=== PATIENT | female | born 1995 | race Caucasian/White ===

== ENCOUNTER 2018-02-12 10:44 | Emergency (ER) | payer BC, OTHER, SELFPAY ==
[2018-02-12 10:45] VITALS: BP 120/69; PULSE 78; PULSE 79; RESP 18; TEMP 37.3; O2SAT 97; O2SAT 99; BMI 35.9
--- NOTE | 2018-02-12 11:05 | EKG12_ITS ---
Test Reason : CP Blood Pressure : / mmHG Vent. Rate : 071 BPM Atrial Rate : 071 BPM P-R Int : 174 ms QRS Dur : 078 ms QT Int : 374 ms P-R-T Axes : 043 055 043 degrees QTc Int : 406 ms Normal sinus rhythm Normal ECG Confirmed by DANDY DAVIS, MIGUELITO ([id number]), clinical editor JEREMIAS KELLY ([id number]) on 02/15/2018 1:18:45 PM Referred By: VERA/GASTON Confirmed By:MIGUELITO DORMAN MD
--- NOTE | 2018-02-12 11:05 | RAD_ITS ---
STUDY: X-RAY CHEST REASON FOR EXAM: Female, 22 years old. Chest pain TECHNIQUE: Single AP portable view of the chest. COMPARISON: 02/26/2013 FINDINGS: Cardiac monitoring leads overlie the chest. The lungs are clear and expanded. There is no demonstrated pleural abnormality. Normal size heart. Normal mediastinum and anu. Normal visualized pulmonary arteries. Normal visualized aortic arch and descending thoracic aorta. Normal visualized thoracic spine. Normal visualized ribs, clavicles, and shoulders. There is no demonstrated abnormality of the visualized soft tissue structures of the upper abdomen. RAD/Chest 1 View (Portable) IMPRESSION: Normal x-ray examination of the chest. Electronically Signed: Ahsan Minor DO at 11:39 EDT Tel , Service support ,
[2018-02-12] MEDS: 0.9% Normal Saline 1,000 ML 150 ML IV (11:30)
[2018-02-12 11:36] LABS: Absolute Lymphocyte Count 2.46 X10^3/ul (0.83-4.51); Absolute Neutrophil Count 6.7 X10^3/uL (2.0-7.7); Basophil# 0.05 X10^3/uL; Basophil% 0.5 % (0-1); Eosinophil# 0.25 X10^3/uL; Eosinophils% 2.4 % (0-5); Hemoglobin 14.9 g/dl (12.0-15.0); Lymphocyte # 2.46 X10^3/ul (4.0); Lymphocyte % 23.6 % (19-41); Mean Corp Hgb Conc 34.7 g/gl (32-36); Mean Corpuscular Hgb 28.8 pg (27.0-32.0); Mean Platelet Vol. 9.7 fl (6.2-12.0); Monocyte# 0.89 X10^3/uL; Monocyte% 8.5 % (0-10); Neutrophil # 6.73 X10^3/uL (2.7-7.7); Neutrophil % 64.7 % (47-70); POSITIVE COUNT NO; POSITIVE DIFFERENTIAL NO; POSITIVE MORPHOLOGY NO; Platelet Count 253 K/mm3 (150-450); RBC Distribution Width CV 12.9 % (11.6-14.6); Red Blood Count 5.18 M/mm3 (4.2-5.4); White Blood Count 10.4 K/mm3 (4.4-11.0)
[2018-02-12 11:50] LABS: D-Dimer Quantitative (DVT/PE) < 0.27 FEU/ug/m (0.27-0.49)
[2018-02-12 11:53] LABS: Anion Gap 4 (5-15); BUN 9 mg/dL (7-18); BUN/Creat Ratio 11.9 RATIO (10-20); Chloride 106 mmol/L (98-107); Creatinine, Serum 0.76 mg/dL (0.55-1.02); EST Glomerular Filtration Rate 101 mL/min (>60); Est Glom Filt Rate - Afr Amer 123 mL/min (>60); Estimated Creatinine Clearance 100.26 ml/min; Glucose 83 mg/dL (74-106); Potassium 3.9 mmol/L (3.5-5.1); Sodium Level 137 mmol/L (136-145)
[2018-02-12 12:07] LABS: Pregnancy, Serum, hCG Quali. NEGATIVE Negative (0-9 Nonpreg)
--- NOTE | 2018-02-12 13:11 | ED.DCSUM_ITS ---
- ER Visit Summary Date of Service: 02/12/18 Chief Complaint: Chest pain History of Present Illness: The patient is a 22 F with chest pain that started yesterday. It was gradual in onset. She describes as a sharp and aching sensation in the middle of her chest. She denies shortness of breath or sweats. She denies nausea. She denies acid reflux. She has not had any recent travel or other PE risk factors. Physical Examination: Vital signs are unremarkable. Patient sitting upright in bed no acute distress. Head neck examination is normal. Heart is regular rate and rhythm. Lung sounds are clear. There is no reducible chest wall tenderness. Abdomen is soft nontender. When I press in the epigastric area she states that she gets a slight fullness in her chest. Lower external examination was no calf tenderness or edema. She has strong distal pulses throughout. Test Results: Portable chest x-ray is unremarkable. EKG is sinus at 71 with no sign of acute ischemia. CBC, chemistry studies, troponin, d-dimer are all negative. test is negative. Emergency Department Course and Treatment: She was given IV fluids and Pepcid. She reports no significant change in her pain. She has been seen here one time previously for similar symptoms at that time was thought to be secondary to anxiety. She will be given a dose of Ativan at this time. She be given a short course to try orally if needed. She is referred to establish with primary care as well as referred to counseling center. Treatment Plan: [] Disposition: Discharge Impression: Atypical chest pain This note was generated with [employer] dictation software. It may contain incorrect words, spelling, and punctuation that were not noted in review of the chart prior to signing ED Disposition - Plan for ED Patient: Chief Complaint: Chest Pain Referrals: Anjelica Arambula MD [Primary Care Provider] -
--- NOTE | 2018-02-12 13:11 | ED.DEP ---
ED Disposition - Plan for ED Patient: Disposition: Home or Assisted Living Chief Complaint: Chest Pain Instructions: ED Chest Pain Atypical Unkn Cause Prescriptions: Lorazepam [Ativan] 0.5 mg PO BID PRN PRN #10 tablet PRN Reason: Anxiety Referrals: Trish Eduardo MD [STAFF PHYSICIAN] - As Needed Counseling,Center [GROUP OF PHYSICIANS] - As Needed
[2018-02-12] MEDS: LORazepam 0.5 MG Tablet PO (13:22)
[2018-02-12 13:28] VITALS: BP 118/75; BP 124/75; PULSE 75; RESP 14; O2SAT 98
== END 2018-02-12 13:29 | disposition home or self-care (01) ==
PROVIDERS: Emergency Provider Emergency Medicine; Family Provider Pediatrics; PCP Pediatrics
DX: R07.89 Other chest pain (principal)
CPT/HCPCS: 71045; 80048; 84484; 84703; 85025; 85379; 93005; 96360; 96361; 99284; J7030; A4216; J3490

== ENCOUNTER 2018-03-26 01:01 | Emergency (ER) | payer BC, OTHER, SELFPAY ==
[2018-03-26 01:02] VITALS: BP 146/86; PULSE 97; RESP 22; TEMP 36.6; O2SAT 100; BMI 38.2
[2018-03-26 01:19] LABS: Absolute Neutrophil Count 10.4 X10^3/uL (2.0-7.7); Basophil# 0.02 X10^3/uL; Basophil% 0.1 % (0-1); Eosinophil# 0.18 X10^3/uL; Eosinophils% 1.2 % (0-5); Hematocrit 41.5 % (37-47); Hemoglobin 14.7 g/dl (12.0-15.0); Lymphocyte % 20.2 % (19-41); Mean Corp Hgb Conc 35.4 g/gl (32-36); Mean Corpuscular Volume 81.9 fL (81-99); Mean Platelet Vol. 9.4 fl (6.2-12.0); Monocyte# 1.22 X10^3/uL; Monocyte% 8.2 % (0-10); Neutrophil # 10.41 X10^3/uL (2.7-7.7); POSITIVE COUNT NO; POSITIVE DIFFERENTIAL NO; POSITIVE MORPHOLOGY YES; Platelet Count 298 K/mm3 (150-450); RBC Distribution Width CV 13.2 % (11.6-14.6); RBC Distribution Width SD 39.2 fl (35.1-43.9); Red Blood Count 5.07 M/mm3 (4.2-5.4); White Blood Count 14.9 K/mm3 (4.4-11.0)
[2018-03-26 01:34] LABS: Anion Gap 9 (5-15); BUN 8 mg/dL (7-18); Calcium,Total 8.9 mg/dL (8.5-10.1); Chloride 105 mmol/L (98-107); EST Glomerular Filtration Rate 95 mL/min (>60); Est Glom Filt Rate - Afr Amer 115 mL/min (>60); Estimated Creatinine Clearance 95.25 ml/min; Glucose 119 mg/dL (74-106); Potassium 3.4 mmol/L (3.5-5.1); Sodium Level 140 mmol/L (136-145)
--- NOTE | 2018-03-26 01:48 | ED.VISSUMM ---
- ER Visit Summary Date of Service: 03/26/18 Chief Complaint: Chest tightness History of Present Illness: The patient is a 22 F intermittent chest tightness for the past 2 days. No radicular symptoms. No dyspnea. No nausea. States did have urticaria symptoms that were diffuse same time saw the urgent care. Placed on Zyrtec and Zantac. Also had a prescription of prednisone told to take it worsen over 24 hours. There is no lip or tongue swelling. No recent travel, surgery, or immobilizations. No history of PE or DVT. No oral contraceptives. No family history of MIs or sudden at a young age. Patient does not have any chronic medical conditions. Similar symptoms in January when she is evaluated. Has not seen her PCP. Currently resolved symptoms. States only mild swelling left ear with warmth. No fevers. States had common cold a week ago which has resolved. Physical Examination: General: Alert and oriented ?3, no acute distress HEENT: Normocephalic, atraumatic. Moist mucosa membranes. There is some mild swelling left auricle with erythema. No indurations, nontender, no drainage Neck: supple, nontender. Cardiovascular: Regular rate and rhythm, no murmurs Respiratory: Normal breath sounds, symmetric, no distress Abdomen: Soft, nontender, nondistended Extremities: Nontender, no edema, pulses intact ?4 Neuro: no focal neurological deficits. Test Results: EKG sinus rate of [address] or T-wave changes. Chest x-ray no acute process. CBC 14.9 hemoglobin 14.7. Potassium 3.4. Creatinine 0.80. Troponin negative. Emergency Department Course and Treatment: Patient EKG negative. PE RC criteria negative. Cardiac workup negative chest x-ray negative. Her white count 14.9. No urine symptoms. No infiltrates on x-ray. She had a recent cold, likely stress reaction. Remained symptom-free. Discussed heart pathway guideline with the patient. She understands 2% risk. Did not want to stay for 3 hour troponin. MONTRELL score 0 heart score 0. Signs and symptoms discussed return to ED. Otherwise follow-up PCP for further testing. She will continue her antihistamines at home. There is no current urticarial lesions. Treatment Plan: [] Disposition: Discharge Impression: Atypical chest pain This note was generated with [employer] software. It may contain incorrect words, spelling, and punctuation that were not noted in review of the chart prior to signing ED Disposition - Plan for ED Patient: Disposition: Home or Assisted Living Chief Complaint: Chest Pain Diagnosis: Atypical chest pain Instructions: ED Chest Pain Atypical Unkn Cause Referrals: Anjelica Arambula MD [Primary Care Provider] - 3-5 Days
[2018-03-26 01:55] LABS: Differential Indicated SCAN CRITERIA MET
[2018-03-26 02:03] VITALS: BP 115/78; PULSE 87; RESP 17; O2SAT 96
== END 2018-03-26 02:06 | disposition home or self-care (01) ==
PROVIDERS: Emergency Provider Emergency Medicine; Family Provider Pediatrics; PCP Pediatrics
DX: R07.89 Other chest pain (principal); F41.9 Anxiety disorder, unspecified
CPT/HCPCS: 71045; 80048; 84484; 85025; 93005; 99285; A4216

== ENCOUNTER 2020-07-13 19:20 | Emergency (ER) | payer OTHER, SELFPAY ==
[2020-07-13 19:22] VITALS: BP 142/84; PULSE 124; RESP 21; TEMP 35.9; O2SAT 99; BMI 39.9
--- NOTE | 2020-07-13 19:36 | ED.DCSUM_ITS ---
- ER Visit Summary Date of Service: 07/13/20 Chief Complaint: Nausea and vomiting] History of Present Illness: The patient is a 25 F [ presents to the emergency department complaint of vomiting that started yesterday. Patient states that she is thrown up about 11 times today. Patient states that she was diagnosed with Covid 4 days ago. Patient's had symptoms of Covid for 6 days. She denies diarrhea. She denies abdominal pain. She does complain of some dysuria and she is concerned that she may have a UTI as well. Patient is on control and does not think that she is . Her boyfriend also had Covid. Patient has no medical history otherwise.] Physical Examination: [HEENT-PERRLA, EOMI. Cranial nerves II through XII grossly intact. TMs clear. Mucous membranes dry. No adenopathy. Cardiovascular-regular and tachycardic. No murmurs auscultated. Lungs-clear to auscultation, chest wall stable without crepitus or subcu emphysema Abdomen-normoactive bowel sounds, soft, nontender, no rebound or rigidity, no peritoneal signs. Extremities-intact ?4, normal range of motion, normal pulses, atraumatic] Test Results: [CBC with differential obtained showed a white count 5.8, hemoglobin 14.7, hematocrit 44, placed 227. Chemistries unremarkable. Urinalysis was positive for 500 leukocyte esterase as well as 150 ketones. Patient had 10-25 WBCs and +1 bacteria. Negative nitrites.] Emergency Department Course and Treatment: [Line established. Patient was given Zofran 4 mg IV. Patient was given a liter normal same fluid bolus. Patient also given Bactrim DS 1 tablet p.o. She was able to tolerate p.o. fluids and had no further vomiting.] Treatment Plan: [We will be given a prescription for Zofran and Bactrim. Patient advised to follow-up with primary care physician in 5 to 7 days. Patient to return if increasing shortness of breath, persistent vomiting, dehydration, or condition should worsen anyway.] Disposition: [Discharged home in stable condition] Impression: [Viral [id number] UTI Dehydration] This note was generated with [employer] software. It may contain incorrect words, spelling, and punctuation that were not noted in review of the chart prior to signing ED Disposition - Plan for ED Patient: Referrals: Walter Baugh MD [Primary Care Provider] -
[2020-07-13 19:49] VITALS: RESP 18
[2020-07-13] MEDS: Ondansetron 4 MG/2 ML Vial IV (19:50)
[2020-07-13] MEDS: 0.9% Normal Saline 1,000 ML 1000 ML IV (19:50)
[2020-07-13 19:56] LABS: Absolute Lymphocyte Count 1.69 X10^3/uL (0.83-4.51); Absolute Neutrophil Count 3.3 X10^3/uL (2.0-7.7); Basophil# 0.02 X10^3/uL; Basophil% 0.3 % (0-1); Eosinophil# 0.01 X10^3/uL; Eosinophils% 0.2 % (0-5); Hematocrit 43.8 % (37-47); Hemoglobin 14.7 g/dL (12.0-15.0); Lymphocyte # 1.69 X10^3/ul (4.0); Lymphocyte % 29.1 % (19-41); Mean Corp Hgb Conc 33.6 g/dL (32-36); Mean Corpuscular Hgb 26.5 pg (27.0-32.0); Mean Corpuscular Volume 78.9 fL (81-99); Mean Platelet Vol. 9.3 fl (6.2-12.0); Monocyte# 0.76 X10^3/uL; Monocyte% 13.1 % (0-10); NRBC Flagged by Analyzer 0 % (0-5); Platelet Count 227 K/mm3 (150-450); RBC Distribution Width CV 14.3 % (11.6-14.6); RBC Distribution Width SD 40.8 fl (35.1-43.9); Red Blood Count 5.55 M/mm3 (4.2-5.4); White Blood Count 5.8 K/mm3 (4.4-11.0)
[2020-07-13 20:20] LABS: Internal QC Validated? YES +Cl - CLEAR BKGD; Pregnancy, Serum, hCG Quali. NEGATIVE Negative
[2020-07-13 20:25] LABS: Anion Gap 9 (5-15); BUN 8 mg/dL (7-18); BUN/Creat Ratio 9.9 RATIO (10-20); Chloride 106 mmol/L (98-107); Creatinine, Serum 0.81 mg/dL (0.55-1.02); EST Glomerular Filtration Rate 92 mL/min (>60); Est Glom Filt Rate - Afr Amer 111 mL/min (>60); Estimated Creatinine Clearance 95.54 ml/min; Glucose 105 mg/dL (74-106); Sodium Level 139 mmol/L (136-145)
[2020-07-13 20:29] VITALS: BP 128/63; PULSE 96; RESP 16; O2SAT 98
[2020-07-13 20:36] LABS: Color, Urine Yellow (Yellow); Glucose, Dipstick Normal (Normal); Leukocyte Esterase-Dipstick 500 /ul (Negative); Nitrite-Dipstick Negative (Negative); Occult Blood-Urine 10 /ul (Negative); Protein-Dipstick 30 mg/dl (Negative); Urine Bilirubin Dipstick Negative (Negative); Urine Clarity Cloudy (Clear); Urine Urobilinogen Normal (Normal); Urine pH 6.5 (5.0 - 8.0)
[2020-07-13 20:37] LABS: Ketone-Dipstick 150 mg/dl (Negative)
[2020-07-13 20:42] LABS: Bacteria 1+ /hpf (None Seen); Mucous, Urine 4+ /hpf (<or=2+); White Blood Cells 10-25 SEEN /hpf (0-5)
[2020-07-13 20:43] LABS: Red Blood Cells-Urine 0-5 SEEN /hpf (0-5)
[2020-07-13 20:45] LABS: Squamous Epithelial Cells - UA 5-10 SEEN /hpf (5-10)
--- NOTE | 2020-07-13 20:53 | ED.DEP ---
ED Disposition - Plan for ED Patient: Instructions: ED Vomiting and Diarrhea ..., ED Viral Syndrome (Adult), ED Bladder Infection, Female (Adult) Prescriptions: Smz/Tmp Ds [Bactrim Ds] 1 tab PO BID #6 tab Prescription Printed Ondansetron [Zofran Odt] 4 mg PO Q8H PRN PRN #10 tab PRN Reason: Nausea Prescription Printed Referrals: Walter Baugh MD [Primary Care Provider] - 5-7 Days
[2020-07-13] MEDS: Smz/Tmp Ds Tablet 1 TABLET PO (21:02)
== END 2020-07-13 21:13 | disposition home or self-care (01) ==
PROVIDERS: Emergency Provider Emergency Medicine; PCP Family Medicine
DX: N39.0 Urinary tract infection, site not specified (principal); E86.0 Dehydration; U07.1 COVID-19
CPT/HCPCS: 80048; 81001; 84703; 85025; 87077; 87086; 87088; 87186; 96361; 96374; 99284; J7030; J2405

== ENCOUNTER 2020-07-15 13:30 | Emergency (ER) | payer OTHER, SELFPAY ==
[2020-07-15 13:31] VITALS: BP 139/82; PULSE 105; RESP 24; TEMP 35.8; O2SAT 99; BMI 39.9
--- NOTE | 2020-07-15 15:18 | EKG12_ITS ---
Test Reason : CP Blood Pressure : / mmHG Vent. Rate : 089 BPM Atrial Rate : 089 BPM P-R Int : 154 ms QRS Dur : 074 ms QT Int : 362 ms P-R-T Axes : 047 036 025 degrees QTc Int : 440 ms Normal sinus rhythm Normal ECG Confirmed by DANDY DAVIS, MIGUELITO ([id number]), food expeditor MANUEL MANRIQUEZ ([id number]) on 07/17/2020 10:48:45 AM Referred By: AUNG Confirmed By:MIGUELITO DORMAN MD
--- NOTE | 2020-07-15 15:31 | ED.DCSUM_ITS ---
History of Present Illness Chief Complaint: Chest Pain Informant: Patient Onset: Yesterday Context: Gradual Onset Timing: Continuous Current Severity: Moderate Maximum Severity: Moderate Narrative: Patient is a 25-year-old female was otherwise been in her normal state of health, with recent diagnosis of Covid, who presents to the emergency department chest pain. Patient states been going on for about 24 hours. She states worse when she coughs. She denies any pleuritic pain. She does not feel definitively short of breath. She states mostly in the center of her chest and nonradiating. She has not had fever. She has no history of underlying lung disease. She was seen for nausea and vomiting few days ago, and states that improved. She is not on any other medications. Prior similar symptoms: Yes Recent Illness/Hospitalization: No Past Medical History - Allergies and Home Meds Allergies/Adverse Reactions: Allergies naproxen Adverse Reaction (Verified 07/15/20 13:34) I HAD BLOOD IN MY STOOL Primary Care Physician: Walter Baugh MD [Primary Care Provider] - Prior records reviewed: Yes Past Medical History: None Surgical History: noncontributory Smoking Status: Never smoker Review of Systems General: Denies: Chills, Fever, Sweats Eyes: Denies: Visual changes - bilaterally, Diplopia ENT: Denies: Rhinorrhea, Sore throat Cardiovascular: Reports: Chest pain. Denies: Palpitations Respiratory: Reports: Cough. Denies: Dyspnea, Dyspnea on exertion Gastrointestinal: Denies: Abdominal pain, Nausea, Vomiting, Diarrhea, Melena, Hematochezia Genitourinary: Denies: Dysuria, Hematuria, Frequency Musculoskeletal: Denies: Back pain, Extremity Pain Skin: Denies: Rash, Wounds Neurological: Denies: Headache, Weakness, Numbness Physical Exam Vital Signs/Narrative: Vital Signs Temp Pulse Resp BP Pulse Ox 07/15/20 13:31 96.4 F L 105 H 24 H 139/82 H 99 Inital Vital Signs reviewed: Yes General: Well nourished, Well developed, No Acute Distress Head: Normocephalic, Atraumatic Eyes: Perrl, EOMI ENT: Moist mucous membranes, No rhinorrhea Neck: Supple, Nontender Cardiovascular: Regular rate, Regular rhythm, No murmurs Respiratory: No distress, CTA bilaterally, Chest nontender Abdomen: Soft, Nontender, Nondistended, Normal bowel sounds Back: Nontender, Normal Inspection Extremities: Nontender, No edema Skin: Normal color, No rash Neurological: Alert, Oriented x3, Cranial nerves II-XII grossly intact, Normal Strength, Normal Sensation Psychological: Normal affect, Normal Mood Diagnostic/Tx/Re-eval Clinical Impression(s) from Imaging Studies Chest X-Ray 07/15/20 15:53 IMPRESSION: Normal x-ray examination of the chest. Electronically Signed: Bassemdaisy Love DO at 16:09 EST Tel [phone], Service support , Abnormal Lab Results 07/15/20 07/15/20 15:45 15:45 WBC 5.3 RBC 5.73 H Hgb 14.6 Hct 45.0 MCV 78.5 L MCH 25.5 L MCHC 32.4 RDW Std Deviation 40.4 RDW Coeff of [place] 14.1 Plt Count 248 MPV 9.1 Immature Gran % (Auto) 0.400 Neut % (Auto) 51.6 Lymph % (Auto) 36.6 [place] % (Auto) 11.0 H Eos % (Auto) 0.2 Baso % (Auto) 0.2 Absolute Neuts (auto) 2.7 Absolute Lymphs (auto) 1.93 Nucleated RBC % 0 Sodium 137 Potassium 4.0 Chloride 107 Carbon Dioxide 23.0 Anion Gap 7 BUN 7 Creatinine 0.80 Estim Creat Clear Calc 96.73 Est GFR (MDRD) Af Amer 113 Est GFR (MDRD) Non-Af 93 BUN/Creatinine Ratio 8.8 L Glucose 89 Calcium 8.8 Total Bilirubin 0.60 AST 41 H ALT 57 H Alkaline Phosphatase 79 Total Protein 8.0 Albumin 3.4 Globulin 4.6 H Albumin/Globulin Ratio 0.7 L - Rhythm Strip Rhythm Strip: Sinus Rhythm Rate: 80 Ectopy: None - EKG Initial EKG Interpretation: Sinus Rhythm, No Acute Injury Pattern Prior: Unchanged - Medical Decision Making Patient presents with recent diagnosis of Covid. She states for the past 24 hours, she has been mildly increased short of breath. She denies any fevers. She states she is otherwise been in her normal state of health. She is not hypoxic. She is not tachypneic. Chest x-ray was obtained which was unremarkable. This was read by both myself and the radiologist. There was no acute abnormalities. EKG was also unremarkable for acute process. Patient's lab work is reassuring. At this point, I do feel that this is likely just Covid symptoms. I do not feel that she needs acute admission. She will be discharged home with Decadron. Impression 1. Shortness of breath 2. COVID-19 ED Disposition - Plan for ED Patient: Disposition: Home or Assisted Living Instructions: ED Chest Pain, Noncardiac Prescriptions: Dexamethasone [Decadron] 6 mg PO DAILY 5 Days #5 tab Prescription Printed Referrals: Walter Baugh MD [Primary Care Provider] -
--- NOTE | 2020-07-15 15:53 | RAD_ITS ---
STUDY: X-RAY CHEST REASON FOR EXAM: Female, 25 years old. CHEST PAIN, SOB, DX WITH COVID AL. TECHNIQUE: Frontal view COMPARISON: 03/26/2018 FINDINGS: The lungs are clear and expanded. There is no demonstrated pleural abnormality. Normal size heart. Normal mediastinum and anu. Normal visualized pulmonary arteries. Normal visualized aortic arch and descending thoracic aorta. Normal visualized thoracic spine. Normal visualized ribs, clavicles, and shoulders. There is no demonstrated abnormality of the visualized soft tissue structures of the upper abdomen. RAD/Chest 1 View (Portable) IMPRESSION: Normal x-ray examination of the chest. Electronically Signed: Bassem Love DO at 16:09 EST Tel [phone], Service support ,
[2020-07-15] MEDS: Ondansetron 4 MG/2 ML Vial IV (16:03)
[2020-07-15] MEDS: dexAMETHasone 4 MG/ML Vial 6 MG IV (16:03)
[2020-07-15] MEDS: 0.9% Normal Saline 1,000 ML 150 ML IV (16:03)
[2020-07-15 16:04] LABS: Absolute Lymphocyte Count 1.93 X10^3/uL (0.83-4.51); Absolute Neutrophil Count 2.7 X10^3/uL (2.0-7.7); Basophil# 0.01 X10^3/uL; Basophil% 0.2 % (0-1); Eosinophil# 0.01 X10^3/uL; Eosinophils% 0.2 % (0-5); Hemoglobin 14.6 g/dL (12.0-15.0); Lymphocyte # 1.93 X10^3/ul (4.0); Lymphocyte % 36.6 % (19-41); Mean Corp Hgb Conc 32.4 g/dL (32-36); Mean Corpuscular Hgb 25.5 pg (27.0-32.0); Mean Corpuscular Volume 78.5 fL (81-99); Mean Platelet Vol. 9.1 fl (6.2-12.0); Monocyte# 0.58 X10^3/uL; NRBC Flagged by Analyzer 0 % (0-5); Neutrophil # 2.72 X10^3/uL (2.7-7.7); Neutrophil % 51.6 % (47-70); Platelet Count 248 K/mm3 (150-450); RBC Distribution Width CV 14.1 % (11.6-14.6); RBC Distribution Width SD 40.4 fl (35.1-43.9); Red Blood Count 5.73 M/mm3 (4.2-5.4); White Blood Count 5.3 K/mm3 (4.4-11.0)
[2020-07-15 16:08] VITALS: BP 132/84; PULSE 88; RESP 24; O2SAT 98
[2020-07-15 16:23] LABS: ALB/GLOB Ratio 0.7 RATIO (0.9-2.4); AST(SGOT) 41 U/L (15-37); Alanine Aminotransfer ALT/SGPT 57 U/L (13-56); Albumin, Serum 3.4 g/dL (3.2-5.0); Alkaline Phosphatase 79 U/L (45-117); Anion Gap 7 (5-15); BUN 7 mg/dL (7-18); BUN/Creat Ratio 8.8 RATIO (10-20); Calcium,Total 8.8 mg/dL (8.5-10.1); Chloride 107 mmol/L (98-107); EST Glomerular Filtration Rate 93 mL/min (>60); Est Glom Filt Rate - Afr Amer 113 mL/min (>60); Estimated Creatinine Clearance 96.73 ml/min; Globulin 4.6 g/dL (2.2-4.2); Glucose 89 mg/dL (74-106); Sodium Level 137 mmol/L (136-145)
[2020-07-15 16:39] VITALS: BP 140/99; PULSE 83; RESP 21; O2SAT 99
--- NOTE | 2020-07-15 16:40 | ED.RN ---
IV DC'ED, CATHETER INTACT, SMALL GAUZE DRESSING PLACED. DISCHARGE INSTRUCTIONS GIVEN TO AND REVIEWED WITH PATIENT, PATIENT DENIES QUESTIONS OR CONCERNS AND VOICES UNDERSTANDING OF DISCHARGE INSTRUCTIONS. PT TO HALLWAY VIA WHEELCHAIR.
== END 2020-07-15 16:41 | disposition home or self-care (01) ==
LOC: ED 15:42
PROVIDERS: Emergency Provider Emergency Medicine; PCP Family Medicine
DX: U07.1 COVID-19 (principal); R06.02 Shortness of breath
CPT/HCPCS: 71045; 80053; 85025; 93005; 96361; 96374; 96375; 99284; J2405